=== PATIENT | male | born 1990 | race Caucasian/White ===

== ENCOUNTER 2020-10-05 17:51 | Emergency (ER) | payer OTHER ==
[2020-10-05] MEDS ORDERED: PREDNISONE 20MG20 MG PO (21:08)
[2020-10-05 21:39] LABS: BASOPHIL 0.5 % (0-2); HCT 52.3 % (42.0-52.0); HGB 16.6 g/dl (13.2-18.0); LYMPHOCYTE 19.8 % (15-48); MCH 30.4 pg (25.0-31.0); MCHC 31.7 g/dL (32.0-36.0); MCV 95.8 fL (78.0-100.0); MPV 10.2 fL (6.0-9.5); NEUTROPHIL 68.2 % (41-80); NRBC 0; PLT 195 K/uL (150-400); RBC 5.46 M/uL (4.70-6.00); RDW 13.7 % (11.5-14.0); WBC 8.8 K/uL (4.0-10.5)
[2020-10-05 21:51] LABS: ALBUMIN 3.1 g/dL (3.4-5.0); BILIRUBIN - TOTAL 0.3 mg/dL (0.2-1.0); C-REACTIVE PROTEIN 6.7 mg/dL (<=0.90); CREATININE 1.27 mg/dL (0.67-1.17); GLOBULIN (CALCULATION) 4.5 g/dL; TOTAL PROTEIN 7.6 g/dL (6.4-8.2); URIC ACID 8.7 mg/dL (3.5-7.2)
== END 2020-10-05 22:16 | disposition home or self-care (01) ==
LOC: FER 17:51
PROVIDERS: Internal Medicine
DX: M10.9 Gout, unspecified (principal); I11.0 Hypertensive heart disease with heart failure; I50.9 Heart failure, unspecified
CPT/HCPCS: 36415; 73630; 80053; 84550; 85025; 86140; J7512